=== PATIENT | female | born 1990 | race Caucasian/White ===

== ENCOUNTER → 2017-06-12 | Emergency (ER) | payer OTHER ==
[~2017-06-12] VITALS: Ht 160 cm; Wt 54.4 kg
== END | disposition home or self-care (01) ==
LOC: ER 10:55
DX: K52.9 Noninfective gastroenteritis and colitis, unspecified (principal)

== ENCOUNTER → 2017-07-14 | Emergency (ER) | payer OTHER ==
[~2017-07-14] VITALS: Ht 157.5 cm; Wt 59.0 kg
== END | disposition home or self-care (01) ==
LOC: ER 16:22
DX: F06.4 Anxiety disorder due to known physiological condition (principal)